=== PATIENT | male | born 1935 | race Caucasian/White ===

== ENCOUNTER 2020-02-24 07:13 | Observation (INO) | payer MEDICARE ==
[2020-02-20 11:28] LABS: BASOPHILS % (AUTO) 0.7 % (0.0-5.0); EOSINOPHILS % (AUTO) 0.8 % (0.0-8.0); HEMATOCRIT 41.2 % (42-54); LYMPHOCYTES % (AUTO) 25.8 % (21.0-51.0); MEAN CORPUSCULAR HEMOGLOBIN 32.1 pg (27.0-33.0); MEAN CORPUSCULAR VOLUME 94.5 fL (79-99); MONOCYTES % (AUTO) 10.4 % (3.0-13.0); NEUTROPHILS % (AUTO) 61.9 % (40.0-77.0); PLATELET COUNT (AUTO) 147 K/uL (130-400); RED BLOOD CELL COUNT(AUTO) 4.36 MIL/uL (4.50-6.20); RED CELL DISTRIBUTION WIDTH 12.4 % (11.0-15.5); WHITE BLOOD COUNT (AUTO) 7.4 K/uL (4.8-10.8)
[2020-02-20 11:31] LABS: APPEARANCE,URINE Clear (CLEAR); BILIRUBIN,URINE Negative (NEGATIVE); COLOR,URINE Yellow (YELLOW); GLUCOSE, URINE (UA) Negative (NEGATIVE); KETONES,URINE Negative (NEGATIVE); LEUKOCYTE ESTERASE ,URINE Negative (NEGATIVE); NITRATE,URINE Negative (NEGATIVE); OCCULT BLOOD,URINE Negative (NEGATIVE); PH,URINE 5.5 (5.0-8.0); PROTEIN,URINE Negative (NEGATIVE); UROBILINOGEN,URINE 0.2 mg/dL (0.2-1.0)
[2020-02-20 11:40] LABS: CREATININE 1.3 mg/dL (0.5-1.5); POTASSIUM 3.7 mmol/L (3.5-5.1)
[2020-02-20 11:56] LABS: INR 1.07 (0.85-1.15); PROTHROMBIN TIME 11.4 SEC (9.6-11.6)
[2020-02-20 11:57] LABS: PARTIAL THROMBOPLASTIN TIME 26.7 SEC (26.3-35.5)
[~2020-02-24] VITALS: Ht 172.7 cm; Wt 94.9 kg
[2020-02-24] VITALS (15 sets, daily range): BP systolic 108–157; BP diastolic 48–91
[~2020-02-24 07:13] MED LIST: AMLO-258 PO; ASPI-1443 PO; ATEN50TA PO; HYDR25TA PO; LOSA100T58 PO; MULT-1367 PO; OMEP20TA25 PO; SIMV80TA91 PO; SODIUM CHLORIDE 0.9% 500ML 500 ML IV SCH
[2020-02-24] MEDS ORDERED: SODIUM CHLORIDE 0.9% 1000ML 1,000 ML IV ONE (07:48)
[2020-02-24] MEDS ORDERED: LIDOCAINE HCL 2% 20ML ONE (09:52)
[2020-02-24] MEDS ORDERED: SODIUM BICARB 50MEQ 50ML VIAL 50 ML ONE (09:52)
[2020-02-24] MEDS ORDERED: IOHEXOL 350 MG/ML 100ML INFUS..BTL IV ONE (09:52)
[2020-02-24] MEDS ORDERED: MIDAZOLAM HCL 1 MG/ML 2ML VIAL ONE ×2 (09:52→10:41)
[2020-02-24] MEDS ORDERED: MEPERIDINE-PF 25 MG/ML SYG ONE ×2 (09:52→10:41)
[2020-02-24] MEDS ORDERED: IOHEXOL-350 50ML VIAL IV ONE ×2 (09:52→10:56)
[2020-02-24] MEDS ORDERED: NITROGLYCERIN 2 MG/VIAL VIAL IV ONE (09:52)
[2020-02-24] MEDS ORDERED: HEPARIN SODIUM 1000UNIT/ML 10ML VIAL ONE (09:52)
[2020-02-24] MEDS ORDERED: IOHEXOL-350 75 ML VIAL IV ONE (10:56)
[2020-02-24] MEDS ORDERED: CLOPIDOGREL BISULFATE 300 MG TAB ONE (11:23)
[2020-02-24] MEDS ORDERED: ASPIRIN 325MG EC TAB 325 MG TABLET.DR PO ONE (11:32)
[2020-02-24] MEDS ORDERED: ACETAMINOPHEN-CODEINE 300/30MG TAB PO PRN ×2 (11:45)
[2020-02-24] MEDS ORDERED: ONDANSETRON HCL 4 MG/2 ML VIAL IVP PRN (11:45)
[2020-02-24] MEDS ORDERED: SODIUM CHLORIDE 0.9% 1000ML 1,000 ML IV SCH (11:45)
[2020-02-24] MEDS ORDERED: SIMVASTATIN 20 MG TABLET PO SCH (21:00)
[2020-02-24] MEDS ORDERED: NON-FORMULARY MEDICATION 1 EACH (Amlodipine Besylate 10 MG) PO SCH (21:00)
[2020-02-25 00:03] VITALS: BP 133/64
[2020-02-25 05:21] VITALS: BP 144/73
[2020-02-25 05:24] LABS: HEMATOCRIT 34.6 % (42-54); MEAN CORPUSCULAR HEMOGLOBIN 32.3 pg (27.0-33.0); MEAN CORPUSCULAR VOLUME 92.3 fL (79-99); RED BLOOD CELL COUNT(AUTO) 3.75 MIL/uL (4.50-6.20); RED CELL DISTRIBUTION WIDTH 12.4 % (11.0-15.5); WHITE BLOOD COUNT (AUTO) 6.7 K/uL (4.8-10.8)
[2020-02-25 05:32] LABS: POTASSIUM 3.1 mmol/L (3.5-5.1)
[2020-02-25 08:00] VITALS: BP 141/63
[2020-02-25] MEDS ORDERED: AMLODIPINE BESYLATE 5 MG TAB PO SCH (09:00)
[2020-02-25] MEDS ORDERED: CLOPIDOGREL BISULFATE 75 MG TAB PO SCH (09:00)
[2020-02-25] MEDS ORDERED: HYDROCHLOROTHIAZIDE 25 MG TABLET PO SCH (09:00)
[2020-02-25] MEDS ORDERED: LOSARTAN 100 MG TABLET PO SCH (09:00)
[2020-02-25] MEDS ORDERED: SIMVASTATIN 80 MG PO SCH (09:00)
[2020-02-25] MEDS ORDERED: PANTOPRAZOLE SODIUM 40 MG TABLET.DR PO SCH (09:00)
[2020-02-25] MEDS ORDERED: MULTIVITAMIN TABLET PO SCH (09:00)
[2020-02-25] MEDS ORDERED: NON-FORMULARY MEDICATION 1 EACH (Multivitamin 1 EACH) PO SCH (09:00)
[2020-02-25] MEDS ORDERED: ATENOLOL 50 MG TABLET PO SCH (09:00)
[2020-02-25] MEDS ORDERED: ASPIRIN 81 MG EC TAB PO SCH (09:00)
[2020-02-25] MEDS ORDERED: POTASSIUM CHLORIDE 20 MEQ ERTAB PO SCH ×2 (10:45→11:00)
[2020-02-25] MEDS ORDERED: CLOP75TA14 PO ×2 (10:48→14:52)
[2020-02-25] MEDS ORDERED: POTASSIUM CHLORIDE 10 MEQ/TAB.SA PO SCH (14:00)
[2020-02-25 15:35] VITALS: BP 149/64
== END 2020-02-25 16:30 | disposition home or self-care (01) ==
LOC: DAH 07:13 → DAHIP 07:14 → 4DH 12:20
PROVIDERS: ADMIT Internal Medicine; ATTEND Internal Medicine
DX: I25.119 Atherosclerotic heart disease of native coronary artery with unspecified angina pectoris (principal); I10 Essential (primary) hypertension; K21.9 Gastro-esophageal reflux disease without esophagitis; Z95.1 Presence of aortocoronary bypass graft; Z90.49 Acquired absence of other specified parts of digestive tract; Z79.82 Long term (current) use of aspirin; Z79.02 Long term (current) use of antithrombotics/antiplatelets; Z79.899 Other long term (current) drug therapy
CPT/HCPCS: 36415 ×2; 71045; 80048 ×2; 81003; 84132; 85025; 85027; 85347 ×3; 85610; 85730; 93005; 93459; 96360; 96361; A4215; A4216; A4221; A4222; A4223 ×3; A4606; A4663; C1760; C1769; C1874 ×2; C1887; C1894; C9604 ×2; G0378 ×28; J1644 ×2; J2175 ×2; J2250 ×2; J3490 ×3; J7030; Q9965 ×2; Q9967 ×2; 99156; 99157; C9605